=== PATIENT | female | born 1950 | race Hispanic/Latino ===

== ENCOUNTER 2020-06-30 08:45 | Observation (INO) | payer MEDICARE ==
[~2020-06-30] VITALS: Ht 152.4 cm; Wt 91.9 kg
[2020-06-30 09:20] LABS: BASOPHILS % (AUTO) 0.6 % (0.0-5.0); HEMATOCRIT 38.1 % (36-48); LYMPHOCYTES % (AUTO) 12.1 % (21.0-51.0); MEAN CORPUSCULAR HEMOGLOBIN 30.4 pg (27.0-33.0); MONOCYTES % (AUTO) 5.6 % (3.0-13.0); NEUTROPHILS % (AUTO) 80.3 % (40.0-77.0); PLATELET COUNT (AUTO) 181 K/uL (130-400); RED BLOOD CELL COUNT(AUTO) 4.01 MIL/uL (4.00-5.50); WHITE BLOOD COUNT (AUTO) 8.2 K/uL (4.8-10.8)
[2020-06-30 09:35] LABS: BILIRUBIN,TOTAL 0.4 mg/dL (0.2-1.0); INR 0.98 (0.85-1.15); POTASSIUM 4.2 mmol/L (3.5-5.1); PROTHROMBIN TIME 10.7 SEC (9.6-11.6); TOTAL PROTEIN, SERUM 8.1 g/dL (6.0-8.3)
[2020-06-30 09:36] LABS: CREATININE 9.2 mg/dL (0.5-1.5); PARTIAL THROMBOPLASTIN TIME 29.9 SEC (26.3-35.5)
[2020-06-30 09:55] LABS: B-TYPE NATRIURETIC PEPTIDE 437 pg/mL (0-100)
[2020-06-30] MEDS ORDERED: 0.9% NACL 500ML IV.SOLN 500 ML IV ONE ×2 (12:42→22:28)
[2020-06-30 15:23] LABS: APPEARANCE,URINE Cloudy (CLEAR); BILIRUBIN,URINE Negative (NEGATIVE); COLOR,URINE Yellow (YELLOW); GLUCOSE, URINE (UA) TRACE mg/dL (NEGATIVE); KETONES,URINE Negative (NEGATIVE); LEUKOCYTE ESTERASE ,URINE Negative (NEGATIVE); NITRATE,URINE Negative (NEGATIVE); OCCULT BLOOD,URINE Trace (NEGATIVE); PH,URINE 8.5 (5.0-8.0); PROTEIN,URINE 300 mg/dL (NEGATIVE); UROBILINOGEN,URINE 0.2 mg/dL (0.2-1.0)
[2020-06-30 15:32] LABS: BACTERIA,URINE Few /HPF (None Seen); RBC,URINE 0-1 /HPF (0-1); WBC,URINE 0-1 /HPF (0-1)
[2020-06-30 15:33] LABS: AMORPHOUS SEDIMENT,UR Few /LPF (None Seen); SQUAMOUS EPITHELIAL CELL,UR 0-2 /HPF (0-2)
[2020-06-30] MEDS ORDERED: DEXTROSE 50%-WATER 50 ML DISP.SYRIN IV PRN (16:30)
[2020-06-30] MEDS ORDERED: GLUCAGON 1MG KIT 1 MG ML IM PRN (16:30)
[2020-06-30 16:44] LABS: AMPHET/METH SCREEN,URINE NEGATIVE (NEGATIVE); BARBITURATE SCREEN, URINE NEGATIVE (NEGATIVE); BENZODIAZEPINES SCREEN,URINE NEGATIVE (NEGATIVE); CANNABINOID SCREEN,URINE NEGATIVE (NEGATIVE); COCAINE SCREEN,URINE NEGATIVE (NEGATIVE); OPIATE SCREEN,URINE NEGATIVE (NEGATIVE); PHENCYCLIDINE SCREEN,URINE NEGATIVE (NEGATIVE)
[2020-06-30] MEDS ORDERED: IOHEXOL-350 75 ML VIAL IV ONE (17:25)
[2020-06-30 18:00] LABS: CREATINE KINASE, TOTAL 86 U/L (21-232); MYOGLOBIN 305 ng/mL (10-92); TROPONIN I < 0.04 ng/mL (0.00-0.06)
[2020-06-30 18:08] LABS: AMMONIA 18 umol/L (11-32)
[2020-06-30 20:14] LABS: ABG BASE EXCESS -2.1 mmol/L (-2.0-3.0); ABG HCO3 22.9 mmol/L (21.0-28.0); ABG OXYGEN SATURATION 92.5 % (95.0-99.0); ABG PCO2 40 mmHg (32-45)
[2020-06-30] MEDS ORDERED: ASPIRIN 81MG CHEW TAB PO SCH (21:00)
[2020-06-30] MEDS ORDERED: SIMVASTATIN 10 MG TABLET PO SCH (21:00)
[2020-06-30] MEDS ORDERED: ACETAMINOPHEN 325 MG TAB PO PRN (21:15)
[2020-06-30] MEDS ORDERED: ONDANSETRON 4MG INJ IVP PRN (21:15)
[2020-06-30] MEDS ORDERED: HYDRALAZINE 20MG/ML VIAL IV PRN (21:15)
[2020-06-30] MEDS ORDERED: ACETAMINOPHEN 650 MG SUPPOSITORY RC PRN (21:15)
[2020-06-30 21:51] LABS: CRP QUANTITATIVE 4.8 mg/L (0.00-9.0)
[2020-06-30] MEDS ORDERED: ASPIRIN 81MG CHEW TAB ONE (22:56)
[2020-06-30] MEDS ORDERED: HYDRALAZINE 20MG/ML VIAL ONE (22:56)
[2020-06-30] MEDS ORDERED: SIMVASTATIN 20 MG TABLET ONE (22:57)
[2020-06-30] MEDS ORDERED: SIMVASTATIN 10 MG TABLET ONE (22:57)
[2020-06-30 23:04] LABS: CREATINE KINASE, TOTAL 75 U/L (21-232); MYOGLOBIN 298 ng/mL (10-92); TROPONIN I < 0.04 ng/mL (0.00-0.06)
[2020-06-30 23:40] VITALS: BP 143/52
[2020-07-01] MEDS ORDERED: ICOS1CAP PO (00:29)
[2020-07-01] MEDS ORDERED: ACET-2743 PO (00:29)
[2020-07-01] MEDS ORDERED: HYDR-4153 PO (00:29)
[2020-07-01] MEDS ORDERED: PHOSLOC PO (00:29)
[2020-07-01] MEDS ORDERED: METO-408 PO (00:29)
[2020-07-01] MEDS ORDERED: FOLI1TAB85 PO (00:29)
[2020-07-01] MEDS ORDERED: CLON0.1T PO (00:29)
[2020-07-01 04:00] VITALS: BP 155/65
[2020-07-01 05:50] LABS: BASOPHILS % (AUTO) 0.7 % (0.0-5.0); EOSINOPHILS % (AUTO) 2.1 % (0.0-8.0); HEMATOCRIT 34.5 % (36-48); LYMPHOCYTES % (AUTO) 18.8 % (21.0-51.0); MEAN CORPUSCULAR HEMOGLOBIN 31.2 pg (27.0-33.0); MEAN CORPUSCULAR HGB CONC 32.5 g/dL (32.0-36.0); MEAN CORPUSCULAR VOLUME 96.1 fL (79-99); MONOCYTES % (AUTO) 7.4 % (3.0-13.0); NEUTROPHILS % (AUTO) 70.6 % (40.0-77.0); PLATELET COUNT (AUTO) 190 K/uL (130-400); RED BLOOD CELL COUNT(AUTO) 3.59 MIL/uL (4.00-5.50); RED CELL DISTRIBUTION WIDTH 14.1 % (11.0-15.5); WHITE BLOOD COUNT (AUTO) 7.6 K/uL (4.8-10.8)
[2020-07-01 05:57] LABS: INR 0.99 (0.85-1.15); PROTHROMBIN TIME 10.3 SEC (9.6-11.6)
[2020-07-01 05:58] LABS: HEMOGLOBIN A1C 4.9 % (4.0-6.0)
[2020-07-01 06:10] LABS: CARBON DIOXIDE 29 mmol/L (21-32); CHLORIDE 93 mmol/L (101-111); CHOLESTEROL 218 mg/dL (<200); CREATINE KINASE, TOTAL 70 U/L (21-232); GLOMERULAR FILTR. RATE CALC 4 mL/min (>60); GLUCOSE,RANDOM 105 mg/dL (70-105); HDL CHOLESTEROL 42 mg/dL (35-85); LDL DIRECT 124 mg/dL (0-99); MYOGLOBIN 312 ng/mL (10-92); POTASSIUM 5.4 mmol/L (3.5-5.1); SODIUM SERUM 131 mmol/L (136-145); THYROID STIMULATING HORMONE 2.28 uIU/mL (0.36-3.74); TRIGLYCERIDES 219 mg/dL (30-200); TROPONIN I < 0.04 ng/mL (0.00-0.06)
[2020-07-01 06:15] LABS: CREATININE 9.9 mg/dL (0.5-1.5); UREA NITROGEN, BLOOD 75 mg/dL (7-18)
[2020-07-01 08:20] VITALS: BP 148/71
[2020-07-01] MEDS: Vitamin B Complex/Vit C/Folic Acid PO SCH (10:47)
[2020-07-01] MEDS: ASPIRIN 81 MG EC TAB PO SCH (10:47)
[2020-07-01 12:37] VITALS: BP 147/69
[2020-07-01 17:42] VITALS: BP 172/64
[2020-07-01 19:20] VITALS: BP 145/61
[2020-07-01] MEDS ORDERED: CLONIDINE HCL 0.1 MG TABLET PO PRN (22:30)
[2020-07-01] MEDS ORDERED: ACETAMINOPHEN 500 MG TABLET PO PRN (22:30)
[2020-07-01 23:49] VITALS: BP 107/68
[2020-07-02 03:51] VITALS: BP 141/71
[2020-07-02 06:10] LABS: HEMATOCRIT 33.8 % (36-48); MEAN CORPUSCULAR HEMOGLOBIN 30.1 pg (27.0-33.0); MEAN CORPUSCULAR VOLUME 94.2 fL (79-99); RED BLOOD CELL COUNT(AUTO) 3.59 MIL/uL (4.00-5.50); RED CELL DISTRIBUTION WIDTH 13.8 % (11.0-15.5); WHITE BLOOD COUNT (AUTO) 6.7 K/uL (4.8-10.8)
[2020-07-02 06:23] LABS: CREATININE 7.2 mg/dL (0.5-1.5); MAGNESIUM 5.4 mg/dL (1.80-2.40); PHOSPHORUS 6.8 mg/dL (2.5-4.9); POTASSIUM 4.2 mmol/L (3.5-5.1)
[2020-07-02 08:12] VITALS: BP 142/50
[2020-07-02] MEDS ORDERED: ENOXAPARIN SODIUM 100 MG/1 ML SQ SCH (09:00)
[2020-07-02] MEDS ORDERED: METOPROLOL SUCCINATE 50 MG TAB.SR.24H PO SCH (09:00)
[2020-07-02] MEDS ORDERED: ICOSAPENT ETHYL 2 GM PO SCH (09:00)
[2020-07-02] MEDS ORDERED: Vitamin B Complex/Vit C/Folic Acid PO SCH (09:00)
[2020-07-02] MEDS: Vitamin B Complex/Vit C/Folic Acid PO SCH (09:53)
[2020-07-02] MEDS: ASPIRIN 81 MG EC TAB PO SCH (09:53)
[2020-07-02] MEDS: CALCIUM AC 667MG CAP PO SCH ×2 (09:54→14:07)
[2020-07-02] MEDS: HYDRALAZINE 25MG TABLET PO SCH ×2 (09:55→14:07)
[2020-07-02 12:00] VITALS: BP 131/51
[2020-07-02 16:52] VITALS: BP 144/58
== END 2020-07-02 18:20 | disposition home or self-care (01) ==
LOC: EDH 08:45 → EDHIP 16:18 → 3BH 23:08
PROVIDERS: ADMIT Internal Medicine Critical Care Medicine; ATTEND Internal Medicine Critical Care Medicine
DX: R53.1 Weakness (principal); Z20.822 Contact with and (suspected) exposure to COVID-19; J96.91 Respiratory failure, unspecified with hypoxia; H53.2 Diplopia; R27.0 Ataxia, unspecified; I12.0 Hypertensive chronic kidney disease with stage 5 chronic kidney disease or end stage renal disease; E11.22 Type 2 diabetes mellitus with diabetic chronic kidney disease; N18.6 End stage renal disease; E87.70 Fluid overload, unspecified; E66.9 Obesity, unspecified; E78.5 Hyperlipidemia, unspecified; E87.5 Hyperkalemia; I67.89 Other cerebrovascular disease; I99.9 Unspecified disorder of circulatory system; Z99.2 Dependence on renal dialysis; Z79.899 Other long term (current) drug therapy; Z68.39 Body mass index [BMI] 39.0-39.9, adult
CPT/HCPCS: 36415 ×3; 36600; 70450; 70544; 70547; 70551; 71045 ×2; 71275; 72100; 80048 ×2; 80053; 80061; 80305; 81001; 82140; 82533; 82550 ×4; 82728; 82803; 82948 ×4; 83036; 83605; 83615; 83735; 83874 ×3; 83880; 84100; 84443; 84484 ×4; 85025 ×2; 85027; 85378; 85610 ×2; 85651; 85730; 86140; 87426; 93005; 93970; 96372; 97039 ×2; 97116; 97161; 99285; G0378 ×39; G8979; G8980; G8981; G8982; G8983; J0360; J1650; J7040 ×2; Q9967; U0003; 90935